=== PATIENT | male | born 1990 | race Caucasian/White ===

== ENCOUNTER 2016-09-25 11:27 | Emergency (ER) | payer OTHER ==
[~2016-09-25] VITALS: Ht 180.3 cm; Wt 100.5 kg
[~2016-09-25 11:27] MED LIST: MOTRIN800 MG PO; ROXICET,PERCOCET5 ML PO; VITAMIN B12-FO1 EACH PO; ZANTAC15 MG/ML PO; ZOFRAN ODT8 MG PO
[2016-09-25 12:46] LABS: HEMATOCRIT 44.2 % (38.0-50.0); MCH 29.3 PG (29.0-34.0); MCHC 34.4 G/DL (30.0-36.0); MCV 85.2 FL (86-99); PLATELET COUNT 277 K/uL (156-360); RBC DIS.WIDTH-CV 12.8 % (11.8-14.6); RBC DIS.WIDTH-SD 39.1 % (39-53); RED BLOOD COUNT 5.19 M/uL (4.00-5.50); WHITE BLOOD COUNT 17.7 K/uL (4.1-10.2)
[2016-09-25 12:59] LABS: CHLORIDE 104 mEq/L (99-109); POTASSIUM 3.7 mEq/L (3.7-5.4); SODIUM 139 mEq/L (136-147)
[2016-09-25 13:02] LABS: GLUCOSE 99 mg/dL (70-99)
[2016-09-25 13:03] LABS: ANION GAP 11 MEQ/L (2-14)
[2016-09-25 13:04] LABS: TOTAL BILIRUBIN 0.7 mg/dL (0.0-1.0)
[2016-09-25 13:05] LABS: ALKALINE PHOSPHATASE 89 IU/L (3-129); GFR ESTIMATE (CALCULATED) > 59 mL/min/
[2016-09-25 13:07] LABS: UREA NITROGEN (BUN) 16 mg/dL (9-23)
[2016-09-25 13:54] LABS: ADD MIUA? YES; BILIRUBIN NEGATIVE; BLOOD NEGATIVE; COLOR YELLOW ((YELLOW)); GLUCOSE (STRIP) NEGATIVE; KETONES NEGATIVE; LEUKOCYTES NEGATIVE; NITRITE NEGATIVE; PROTEIN (STRIP) 30; SPECIFIC GRAVITY 1.029 (1.000-1.030); UROBILINOGEN 0.2 MG/DL (0.2-1.0)
[2016-09-25 13:57] LABS: BACTERIA RARE /HPF; EPITHELIAL CELLS NONE SEEN /HPF; MUCUS TRACE /LPF; RED BLOOD CELLS 0-5 /HPF (0-5); UCUL ADDED? NO; WHITE BLOOD CELLS 0-5 /HPF (0-5)
[2016-09-25] MEDS ORDERED: ZOFRAN ODT4 MG PO (17:40)
[2016-09-25] MEDS ORDERED: MOTRIN800 MG PO (17:40)
[2016-09-25] MEDS ORDERED: FLOMAX0.4 MG PO (17:40)
[2016-09-25 17:55] VITALS: BP 121/72
== END 2016-09-25 18:06 | disposition home or self-care (01) ==
LOC: EME 11:27
DX: N20.0 Calculus of kidney (principal); K21.9 Gastro-esophageal reflux disease without esophagitis; Z87.442 Personal history of urinary calculi; F17.200 Nicotine dependence, unspecified, uncomplicated
CPT/HCPCS: 74176; 80053; 81003; 85027; 99281; 99285; J1885; J2405; J7030

== ENCOUNTER 2016-09-30 12:45 | Emergency (ER) | payer OTHER ==
[~2016-09-30] VITALS: Ht 180.3 cm; Wt 102.1 kg
[~2016-09-30 12:45] MED LIST changes: +FLOMAX0.4 MG PO; +ZOFRAN ODT4 MG PO
[2016-09-30 15:14] LABS: HEMATOCRIT 39.3 % (38.0-50.0); MCHC 34.6 G/DL (30.0-36.0); MCV 83.8 FL (86-99); MEAN PLAT.VOLUME 8.7 uM^3 (9.0-12.4); PLATELET COUNT 277 K/uL (156-360); RBC DIS.WIDTH-CV 12.3 % (11.8-14.6); RBC DIS.WIDTH-SD 37.1 % (39-53); RED BLOOD COUNT 4.69 M/uL (4.00-5.50); WHITE BLOOD COUNT 11.8 K/uL (4.1-10.2)
[2016-09-30 15:22] LABS: CHLORIDE 105 mEq/L (99-109); POTASSIUM 3.7 mEq/L (3.7-5.4); SODIUM 141 mEq/L (136-147)
[2016-09-30 15:24] LABS: GLUCOSE 91 mg/dL (70-99)
[2016-09-30 15:26] LABS: ANION GAP 12 MEQ/L (2-14)
[2016-09-30 15:27] LABS: ADD MIUA? NO; BILIRUBIN NEGATIVE; BLOOD NEGATIVE; COLOR YELLOW ((YELLOW)); GLUCOSE (STRIP) NEGATIVE; KETONES NEGATIVE; LEUKOCYTES NEGATIVE; NITRITE NEGATIVE; PROTEIN (STRIP) NEGATIVE; SPECIFIC GRAVITY 1.019 (1.000-1.030); UCUL ADDED? NO; UROBILINOGEN 0.2 MG/DL (0.2-1.0)
[2016-09-30 15:28] LABS: ALKALINE PHOSPHATASE 68 IU/L (3-129); GFR ESTIMATE (CALCULATED) > 59 mL/min/
[2016-09-30 15:29] LABS: TOTAL BILIRUBIN 0.5 mg/dL (0.0-1.0); UREA NITROGEN (BUN) 12 mg/dL (9-23)
[2016-09-30 15:31] LABS: DIRECT BILIRUBIN 0.2 mg/dL (0.0-0.3)
[2016-09-30 15:32] LABS: CREATINE KINASE 100 IU/L (1-294); LIPASE 19 U/L (1.0-51.0); TOTAL CK 100 IU/L (1-294)
[2016-09-30 15:39] LABS: CK-MB < 0.4 ng/mL (0.0-4.9)
[2016-09-30] MEDS ORDERED: ZOFRAN ODT4 MG PO (16:31)
[2016-09-30 16:54] VITALS: BP 115/69
== END 2016-09-30 16:55 | disposition home or self-care (01) ==
LOC: EME 12:45
DX: B34.9 Viral infection, unspecified (principal); J45.909 Unspecified asthma, uncomplicated; K21.9 Gastro-esophageal reflux disease without esophagitis; Z87.442 Personal history of urinary calculi; Z87.891 Personal history of nicotine dependence
CPT/HCPCS: 74022; 80048; 80076; 81003; 82550; 82553; 83605; 83690; 85027; 87040; 87651 90; 99281; 99285; J7030

== ENCOUNTER 2016-10-01 19:13 | Emergency (ER) | payer OTHER ==
[~2016-10-01] VITALS: Ht 180.3 cm; Wt 101.7 kg
[2016-10-01 20:06] LABS: HEMATOCRIT 39.2 % (38.0-50.0); MCHC 33.9 G/DL (30.0-36.0); MCV 85.6 FL (86-99); MEAN PLAT.VOLUME 8.7 uM^3 (9.0-12.4); PLATELET COUNT 321 K/uL (156-360); RBC DIS.WIDTH-CV 12.5 % (11.8-14.6); RBC DIS.WIDTH-SD 38.7 % (39-53); RED BLOOD COUNT 4.58 M/uL (4.00-5.50); WHITE BLOOD COUNT 9.5 K/uL (4.1-10.2)
[2016-10-01 20:18] LABS: CHLORIDE 106 mEq/L (99-109); POTASSIUM 3.8 mEq/L (3.7-5.4); SODIUM 144 mEq/L (136-147)
[2016-10-01 20:20] LABS: GLUCOSE 82 mg/dL (70-99)
[2016-10-01 20:21] LABS: ANION GAP 12 MEQ/L (2-14)
[2016-10-01 20:22] LABS: TOTAL BILIRUBIN 0.5 mg/dL (0.0-1.0)
[2016-10-01 20:23] LABS: ALKALINE PHOSPHATASE 72 IU/L (3-129)
[2016-10-01 20:24] LABS: GFR ESTIMATE (CALCULATED) > 59 mL/min/
[2016-10-01 20:25] LABS: UREA NITROGEN (BUN) 14 mg/dL (9-23)
[2016-10-02 01:27] LABS: ADD MIUA? NO; BILIRUBIN NEGATIVE; BLOOD NEGATIVE; COLOR YELLOW ((YELLOW)); GLUCOSE (STRIP) NEGATIVE; KETONES NEGATIVE; LEUKOCYTES NEGATIVE; NITRITE NEGATIVE; PROTEIN (STRIP) 30; SPECIFIC GRAVITY 1.014 (1.000-1.030); UCUL ADDED? NO; UROBILINOGEN 0.2 MG/DL (0.2-1.0)
[2016-10-02] MEDS ORDERED: CIPRO500 MG PO (01:41)
[2016-10-02 01:55] VITALS: BP 138/82
[2016-10-02 02:31] LABS: C DIFF TOXIN NEGATIVE (NEGATIVE)
[2016-10-02 02:37] LABS: PROBE CHECK PASS; SPECIMEN PROCESSING CONTROL PASS
== END 2016-10-02 02:05 | disposition home or self-care (01) ==
LOC: EME 19:13
PROVIDERS: Physician Assistant Medical
DX: R19.7 Diarrhea, unspecified (principal); J45.909 Unspecified asthma, uncomplicated; K21.9 Gastro-esophageal reflux disease without esophagitis; Z87.442 Personal history of urinary calculi; Z87.891 Personal history of nicotine dependence
CPT/HCPCS: 80053; 81003; 85027; 87493; 99281; 99284

== ENCOUNTER 2017-11-24 12:13 | Emergency (ER) | payer OTHER ==
[~2017-11-24] VITALS: Ht 177.8 cm; Wt 105.7 kg
[~2017-11-24 12:13] MED LIST changes: +CIPRO500 MG PO
[2017-11-24 12:20] VITALS: BP 157/99
== END 2017-11-24 14:35 | disposition home or self-care (01) ==
LOC: EME 12:13
DX: Z20.3 Contact with and (suspected) exposure to rabies (principal); Z23 Encounter for immunization; Z29.14 Encounter for prophylactic rabies immune globulin; W55.89XA Other contact with other mammals, initial encounter; Z91.018 Allergy to other foods
CPT/HCPCS: 99281; 99283

== ENCOUNTER 2017-12-01 13:39 | Emergency (ER) | payer OTHER ==
[~2017-12-01] VITALS: Ht 177.8 cm; Wt 105.9 kg
[2017-12-01 13:41] VITALS: BP 128/97
== END 2017-12-01 14:36 | disposition home or self-care (01) ==
LOC: EME 13:39
PROC: 3E0234Z Introduction of Serum, Toxoid and Vaccine into Muscle, Percutaneous Approach (ICD-10-PCS; principal; 2017-12-01)
DX: Z20.3 Contact with and (suspected) exposure to rabies (principal); Z23 Encounter for immunization; F17.200 Nicotine dependence, unspecified, uncomplicated
CPT/HCPCS: 99281; 99283

== ENCOUNTER 2017-12-08 08:32 | Emergency (ER) | payer OTHER ==
[~2017-12-08] VITALS: Ht 177.8 cm; Wt 105.1 kg
[2017-12-08 08:40] VITALS: BP 129/92
== END 2017-12-08 10:19 | disposition home or self-care (01) ==
LOC: EME 08:32
PROC: 3E0234Z Introduction of Serum, Toxoid and Vaccine into Muscle, Percutaneous Approach (ICD-10-PCS; principal; 2017-12-08)
DX: Z20.3 Contact with and (suspected) exposure to rabies (principal); Z23 Encounter for immunization; G47.30 Sleep apnea, unspecified
CPT/HCPCS: 99281; 99284